=== PATIENT | female | born 1945 | race Caucasian/White ===

== ENCOUNTER 2019-09-07 11:45 | Emergency (ER) | payer MEDICARE ==
[2019-09-07 11:56] VITALS: BP 144/78; PULSE 78; RESP 18; TEMP 97.6
[2019-09-07] MEDS ORDERED: DIPH,PERTUS(ACELL)TETVAC-LF 0.5 ML VIAL IM ONE (12:35)
--- NOTE | 2019-09-07 12:40 | ED ---
General Adult HPI - General Source: patient, RN notes reviewed Mode of arrival: ambulatory Limitations: no limitations <Pete Naik - Last Filed: 09/07/19 12:35> <Kevin Cunningham - Last Filed: 09/07/19 16:38> - General Chief complaint: Animal Bite Stated complaint: Rat bite Time Seen by Provider: 09/07/19 11:58 - History of Present Illness Initial comments: 74-year-old female presents to the emergency department for a chief of right bites of the left fifth digit. This was her pet rat. Patient states she went to give him water and he bit her finger. States she cleaned this out and put antibiotic ointment on it but came to the emergency department because she heard she could get a disease from rats.Patient has no other complaints at this time including shortness of breath, chest pain, abdominal pain, nausea or vomiting, headache, or visual changes. (Pete Naik) - Related Data Home Medications Medication Instructions Recorded Confirmed Acetaminophen [Tylenol Extra 500 mg PO DIRECTED PRN 08/14/18 11/08/18 Strength] Albuterol Sulfate [Proair Hfa] 2 puff INHALATION BID PRN 08/14/18 11/08/18 Previous Rx's Medication Instructions Recorded Amoxicillin/Potassium Clav 1 tab PO Q12HR #20 tab 09/07/19 [Augmentin 875-125 Tablet] Allergies Allergy/AdvReac Type Severity Reaction Status Date / Time peanut Allergy Dyspnea,"passed Verified 09/07/19 11:57 out" peanut oil Allergy Dyspnea, Verified 09/07/19 11:57 "passed out" Review of Systems ROS Other: All systems not noted in ROS Statement are negative. <Pete Naik - Last Filed: 09/07/19 12:35> ROS Other: All systems not noted in ROS Statement are negative. <Kevin Cunningham - Last Filed: 09/07/19 16:38> ROS Statement: Those systems with pertinent positive or pertinent negative responses have been documented in the HPI. 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/2 feet-(uses walker at times) History of Any Multi-Drug Resistant Organisms: None Reported Past Surgical History: Adenoidectomy, Tonsillectomy Additional Past Surgical History / Comment(s): detached retina rt eye, vilma cataracts, Past Anesthesia/Blood Transfusion Reactions: Motion Sickness Additional Past Anesthesia/Blood Transfusion Reaction / Comment(s): adopted-no family hx Past Psychological History: No Psychological Hx Reported Smoking Status: Former smoker Past Alcohol Use History: None Reported Past Drug Use History: None Reported - Past Family History Mother Family Medical History: Unable to Obtain <Pete Naik - Last Filed: 09/07/19 12:35> General Exam Limitations: no limitations General appearance: alert, in no apparent distress Head exam: Present: atraumatic, normocephalic, normal inspection Eye exam: Present: normal appearance, PERRL, EOMI. Absent: scleral icterus, conjunctival injection, periorbital swelling ENT exam: Present: normal exam, mucous membranes moist Neck exam: Present: normal inspection, full ROM. Absent: tenderness, meningismus, lymphadenopathy Respiratory exam: Present: normal lung sounds bilaterally. Absent: respiratory distress, wheezes, rales, rhonchi, stridor Cardiovascular Exam: Present: regular rate, normal rhythm, normal heart sounds. Absent: systolic murmur, diastolic murmur, rubs, gallop, clicks Extremities exam: Present: full ROM (Full range motion of the left fifth digit and all digits in the left hand.), normal capillary refill (Capillary refill less than 2 seconds in the left fifth digit. Radial pulse 2+ in the left upper extremity.), other (Patient has a very small 0.5 cm superficial laceration of the left fifth digit. No erythema. No evidence of infection.). Absent: tenderness, pedal edema, joint swelling, calf tenderness <Pete Naik - Last Filed: 09/07/19 12:35> Course <Kevin Cunningham - Last Filed: 09/07/19 16:38> Vital Signs 09/07/19 11:54 Temperature 97.6 F Pulse Rate 78 Respiratory 18 Rate Blood Pressure 144/78 O2 Sat by Pulse 99 Oximetry - Reevaluation(s) Reevaluation #1: 09/07/19 16:38 PA supervision: I personally evaluate this case patient presenting with complaints of red bites to the hand read as domestic unit. No further workup is indicated patient at which was initiated I do agree with the assessment and plan (Kevin Cunningham) Medical Decision Making <Pete Naik - Last Filed: 09/07/19 12:35> - Medical Decision Making No evidence of infection. Tetanus was updated. [facility] recommends against rabies vaccination for rodents including rats as they are not known to transmit rabies to humans. Patient will be treated with Augmentin. She will follow up with primary care in 1-2 days and return if she has any worsening symptoms. (Pete Naik) Disposition Is patient prescribed a controlled substance at d/c from ED?: No Time of Disposition: 12:35 <Pete Naik - Last Filed: 09/07/19 12:35> <Kevin Cunningham - Last Filed: 09/07/19 16:38> Clinical Impression: Rat bite Disposition: HOME SELF-CARE Condition: Good Instructions (If sedation given, give patient instructions): Animal Bite (ED) Additional Instructions: Please take antibiotic as directed. Please follow-up with primary care in 1-2 days. Keep area clean. If you notice any signs of infection such as spreading redness, drainage or fever return to the emergency department. Prescriptions: Amoxicillin/Potassium Clav [Augmentin 875-125 Tablet] 1 tab PO Q12HR #20 tab Referrals: Lc Patton MD [Primary Care Provider] - 1-2 days
== END 2019-09-07 13:45 | disposition home or self-care (01) ==
LOC: EC 11:45
DX: S60.477A Other superficial bite of left little finger, initial encounter (principal); J45.909 Unspecified asthma, uncomplicated; Z87.891 Personal history of nicotine dependence; Z91.010 Allergy to peanuts; Z79.899 Other long term (current) drug therapy; Z23 Encounter for immunization; W53.11XA Bitten by rat, initial encounter; Y93.89 Activity, other specified
CPT/HCPCS: 90471; 90715; 99283

== ENCOUNTER → 2020-07-25 | Outpatient (CLI) | payer MEDICARE ==
[2020-07-25 12:05] LABS: Basophils % (A) 0 %; Eosinophils # (A) 0.4 k/uL (0-0.7); Eosinophils % (A) 5 %; HCT 40.1 % (34.0-46.0); HGB 12.7 gm/dL (11.4-16.0); Lymphocytes % (A) 13 %; MCH 30.6 pg (25.0-35.0); MCHC 31.6 g/dL (31.0-37.0); MCV 96.7 fL (80.0-100.0); Monocytes # (A) 0.6 k/uL (0-1.0); Monocytes % (A) 8 %; Neutrophils # (A) 5.3 k/uL (1.3-7.7); Neutrophils % (A) 71 %; Platelet Count 220 k/uL (150-450); RBC 4.15 m/uL (3.80-5.40); RDW 13.6 % (11.5-15.5); WBC 7.4 k/uL (3.8-10.6)
[2020-07-25 18:06] LABS: African American GFR (CKD) 72.5 (60.0-200.0); Albumin 4.3 g/dL (3.80-4.90); Albumin/Globulin Ratio 1.65 (1.60-3.17); Anion Gap 6.7 mmol/L (4.00-12.00); Calcium 9.5 mg/dL (8.7-10.3); Carbon Dioxide 29.3 mmol/L (21.6-31.8); Globulin 2.6 g/dL (1.6-3.3); Non-African American GFR(CKD) 62.5 (60.0-200.0); Potassium 5.2 mmol/L (3.5-5.5); Total Bilirubin 0.5 mg/dL (0.2-1.2); Total Protein 6.9 g/dL (6.2-8.2)
[2020-07-25 19:26] LABS: Hemoglobin A1C 5.9 % (4.0-6.0)
== END | disposition home or self-care (01) ==
LOC: LABWHC1 10:46
PROVIDERS: ATTEND Nurse Practitioner Family
DX: I87.312 Chronic venous hypertension (idiopathic) with ulcer of left lower extremity (principal); L97.322 Non-pressure chronic ulcer of left ankle with fat layer exposed; L97.522 Non-pressure chronic ulcer of other part of left foot with fat layer exposed; R73.9 Hyperglycemia, unspecified
CPT/HCPCS: 36415; 80053; 83036; 84134; 85025